=== PATIENT | female | born 1995 | race Caucasian/White ===

== ENCOUNTER 2018-09-21 21:09 | Emergency (ER) | payer OTHER ==
[2018-09-21 22:19] VITALS: BP 139/94; PULSE 90; TEMP 98.5; O2SAT 100
--- NOTE | 2018-09-21 23:03 | C.PDOC ---
History Of Present Illness 22 year old female presents requesting a repeat test after having a positive home test, LMP 09/07/18. Patient reports Hx myomectomy in 04/2018 and was advised not to get before 6 months time. She is concerned about this early and is seeking advice on early termination. Denies abdominal pain, UTI symptoms, or vaginal bleeding. Time Seen by Provider: 09/21/18 22:08 Chief Complaint (Nursing): Female Genitourinary History Per: Patient History/Exam Limitations: no limitations Onset/Duration Of Symptoms: Hrs Current Symptoms Are (Timing): Still Present Recent travel outside of the [place]: No Past Medical History Reviewed: Historical Data, Nursing Documentation, Vital Signs Vital Signs: Last Vital Signs Temp 98.5 F 09/21/18 21:55 Pulse 90 09/21/18 21:55 Resp 18 09/21/18 21:55 BP 139/94 H 09/21/18 21:55 Pulse Ox 100 09/21/18 21:55 Primary Care Provider: FAMILY PROVIDER,NO Family History: States: Unknown Family Hx - Social History Hx Alcohol Use: Yes Hx Substance Use: No Review Of Systems Gastrointestinal: Negative for: Abdominal Pain Genitourinary: Negative for: Dysuria, Hematuria, Vaginal Bleeding Physical Exam - Physical Exam Appears: Non-toxic Skin: Normal Color, Warm Head: Atraumatic, Normacephalic Eye(s): bilateral: Normal Inspection, PERRL Gastrointestinal/Abdominal: Normal Exam, Soft, No Tenderness Back: No CVA Tenderness Pelvic: Other (Pt refused) Neurological/Psych: Oriented x3, Normal Speech Gait: Steady ED Course And Treatment O2 Sat by Pulse Oximetry: 100 (Room air) Pulse Ox Interpretation: Normal Progress Note: Urine POC showed a very faint positive line, possible early , LMP 09/07/18. Patient is stable, will discharge home with instructions to follow up with OBGYN for evaluation and confirmation pf . 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 - Scribe Statement The provider has reviewed the documentation as recorded by the Scribe Vijay Orr All medical record entries made by the Scribe were at my direction and personally dictated by me. I have reviewed the chart and agree that the record accurately reflects my personal performance of the history, physical exam, medical decision making, and the department course for this patient. I have also personally directed, reviewed, and agree with the discharge instructions and disposition.
[2018-09-21 23:08] VITALS: RESP 20
== END 2018-09-21 23:07 | disposition home or self-care (01) ==
LOC: C.ER 21:09
DX: Z32.00 Encounter for pregnancy test, result unknown (principal)